=== PATIENT | female | born 1950 | race Caucasian/White ===

== ENCOUNTER 2016-12-27 06:59 | Inpatient (IN) | payer OTHER, MEDICAID ==
[~2016-12-27] VITALS: Ht 154.9 cm; Wt 127.5 kg
[~2016-12-27 06:59] MED LIST: ATENOLOL25 MG PO; COZ25 PO; COZAAR50 MG PO; DEXAMETHAS0.5 MG/5 M; LOM; MOT600 PO; SIMVASTATIN10 M1; SIMVASTATIN20 M1 PO; TRAMADOL HCL50 MG; ZOFRAN4 M2 PO
[2016-12-27 07:45] LABS: BASOPHIL % 0.4 % (0-2); PLATELET COUNT 180 x10^3mcL (130-400)
[2016-12-27 07:52] LABS: RED CELL DISTRIBUTION WIDTH 14.7 % (11.5-14.5)
[2016-12-27 08:02] LABS: CALCIUM 8.8 mg/dL (8.5-10.1); CARBON DIOXIDE 30.1 mmol/L (21-32); CREATININE SERUM 1.1 mg/dL (0.6-1.0)
[2016-12-27 08:06] LABS: ALBUMIN 3.5 g/dL (3.4-5.0); BILIRUBIN TOTAL 0.3 mg/dL (0.20-1.00); TOTAL PROTEIN, SERUM 6.8 g/dL (6.4-8.2)
[2016-12-27 08:11] LABS: T3 TOTAL 1.21 ng/mL
[2016-12-27 08:16] LABS: CHOLESTEROL/HDL RATIO 2.9
[2016-12-27 08:25] LABS: FREE T4 1.02 ng/dL (0.76-1.46); FREE THYROXINE INDEX 3.6 ug/dL (1.4-4.5); T4(THYROXINE) 10.2 ug/dL (4.7-13.3)
[2016-12-27 10:12] LABS: UA SPECIFIC GRAVITY 1.025 (1.005-1.035); microscopic required? YES; urine erythrocyte 1+ (NEGATIVE)
[2016-12-27] MEDS ORDERED: NOR10T (10:56)
[2016-12-27] MEDS ORDERED: FEMARA2.5 MG (10:57)
[2016-12-27] MEDS ORDERED: NIFEDICAL XL30 MG (10:57)
[2016-12-27] MEDS ORDERED: DOK COLACE100 MG PO (10:57)
[2016-12-27] MEDS ORDERED: CHILDREN'S5 MG/5 M1 (10:57)
[2016-12-27 12:07] VITALS: BP 143/68
[2016-12-27 14:02] VITALS: BP 100/50
[2016-12-27 14:52] LABS: AMPHETAMINE QUAL UR NONE DETECTED (NEG <=1000)
[2016-12-27 17:40] VITALS: BP 130/73
[2016-12-27 21:26] VITALS: BP 119/74
[2016-12-28 05:57] VITALS: BP 130/73
[2016-12-28 07:45] LABS: CALCIUM 8.5 mg/dL (8.5-10.1); CARBON DIOXIDE 29.7 mmol/L (21-32); MAGNESIUM 1.8 mg/dL (1.8-2.4); PHOSPHOROUS 3.6 mg/dL (2.5-4.9); POTASSIUM SERUM 4.1 mmol/L (3.5-5.1)
[2016-12-28 08:02] LABS: BASOPHIL % 0.3 % (0-2); PLATELET COUNT 159 x10^3mcL (130-400); RED CELL DISTRIBUTION WIDTH 14.5 % (11.5-14.5)
[2016-12-28 09:00] VITALS: BP 124/62
[2016-12-28 12:06] VITALS: BP 124/62
== END 2016-12-28 12:50 | disposition home or self-care (01) | DRG 947 ==
LOC: ED 06:59 → DU 11:05
PROVIDERS: Specialist; ADMIT Family Medicine
DX: G89.18 Other acute postprocedural pain (principal); E43 Unspecified severe protein-calorie malnutrition; Z68.43 Body mass index [BMI] 50.0-59.9, adult; E11.65 Type 2 diabetes mellitus with hyperglycemia; C50.912 Malignant neoplasm of unspecified site of left female breast; M79.1 Myalgia; I10 Essential (primary) hypertension; E02 Subclinical iodine-deficiency hypothyroidism; E66.01 Morbid (severe) obesity due to excess calories; E78.5 Hyperlipidemia, unspecified; Z79.84 Long term (current) use of oral hypoglycemic drugs; T41.205A Adverse effect of unspecified general anesthetics, initial encounter
CPT/HCPCS: 80307; 83880; 84439; J1885; J2405; J3010; J7030; Q0092

== ENCOUNTER 2017-09-04 14:19 | Emergency (ER) | payer OTHER, MEDICAID ==
[~2017-09-04] VITALS: Ht 154.9 cm; Wt 114.3 kg
[~2017-09-04 14:19] MED LIST changes: +CHILDREN'S5 MG/5 M1; +DOK COLACE100 MG PO; +FEMARA2.5 MG; +NIFEDICAL XL30 MG; +NOR10T
[2017-09-04 14:20] VITALS: Ht 154.9 cm; Wt 114.3 kg
[2017-09-04 15:44] VITALS: BP 150/100
== END 2017-09-04 15:44 | disposition home or self-care (01) ==
LOC: ED 14:19
DX: R05 Cough (principal); I10 Essential (primary) hypertension; Z85.3 Personal history of malignant neoplasm of breast; Z91.048 Other nonmedicinal substance allergy status
CPT/HCPCS: J7512; J7613; J7644; Q0092

== ENCOUNTER 2017-10-03 12:59 | Emergency (ER) | payer OTHER, MEDICAID ==
[~2017-10-03] VITALS: Ht 152.4 cm; Wt 114.8 kg
[2017-10-03 13:10] VITALS: Ht 152.4 cm; Wt 114.8 kg
[2017-10-03 14:08] VITALS: BP 142/75
== END 2017-10-03 14:08 | disposition home or self-care (01) ==
LOC: ED 12:59
DX: J20.9 Acute bronchitis, unspecified (principal); I10 Essential (primary) hypertension
CPT/HCPCS: J7613; J7644; Q0092

== ENCOUNTER 2017-10-05 09:05 | Inpatient (IN) | payer OTHER, MEDICAID ==
[~2017-10-05] VITALS: Ht 152.4 cm; Wt 106.2 kg
[2017-10-05 09:14] VITALS: Ht 152.4 cm; Wt 106.2 kg
[2017-10-05 10:32] LABS: BASOPHIL % 0.2 % (0-2); CK-MB 2.3 ng/mL (0-3.6); FREE T4 1.05 ng/dL (0.76-1.46); PLATELET COUNT 208 x10^3mcL (130-400); T4(THYROXINE) 8.7 ug/dL (4.7-13.3)
[2017-10-05 10:33] LABS: T3 TOTAL 1.55 ng/mL
[2017-10-05 10:35] LABS: RED CELL DISTRIBUTION WIDTH 14.9 % (11.5-14.5)
[2017-10-05 10:38] LABS: CALCIUM 9.3 mg/dL (8.5-10.1); CARBON DIOXIDE 26.7 mmol/L (21-32); CREATININE SERUM 1.1 mg/dL (0.6-1.0); POTASSIUM SERUM 3.7 mmol/L (3.5-5.1)
[2017-10-05 10:48] LABS: BILIRUBIN TOTAL 0.4 mg/dL (0.20-1.00); C REACTIVE PROTEIN 0.7 mg/dL (<=0.9); TOTAL PROTEIN, SERUM 7.6 g/dL (6.4-8.2)
[2017-10-05] MEDS ORDERED: FEMARA2.5 MG PO (10:57)
[2017-10-05] MEDS ORDERED: NOR10 PO (10:57)
[2017-10-05] MEDS ORDERED: CLARITIN10 MG PO (10:57)
[2017-10-05] MEDS ORDERED: AZITHROMYCIN250 M1 PO (10:58)
[2017-10-05] MEDS ORDERED: VENTOLIN H0.09 MG/A1 INH (10:58)
[2017-10-05 11:42] LABS: ERYTHROCYTE SED RATE 34 mm/hr (0-30)
[2017-10-05 12:26] LABS: CHOLESTEROL/HDL RATIO 3.1; PHOSPHOROUS 3.2 mg/dL (2.5-4.9)
[2017-10-05 12:32] VITALS: BP 144/119
[2017-10-05 15:40] VITALS: BP 143/72
[2017-10-05 18:20] VITALS: BP 115/69
[2017-10-05 18:25] VITALS: BP 98/74
[2017-10-05 19:32] LABS: UA SPECIFIC GRAVITY >=1.030 (1.005-1.035); microscopic required? YES; urine erythrocyte 2+ (NEGATIVE)
[2017-10-05 20:11] LABS: AMPHETAMINE QUAL UR NONE DETECTED (NEG <=1000)
[2017-10-05 20:39] VITALS: BP 142/79
[2017-10-06 05:50] VITALS: BP 134/60
[2017-10-06 06:04] LABS: BASOPHIL % 0.1 % (0-2); PLATELET COUNT 199 x10^3mcL (130-400)
[2017-10-06 06:10] LABS: RED CELL DISTRIBUTION WIDTH 15.1 % (11.5-14.5)
[2017-10-06 06:22] LABS: CALCIUM 9.6 mg/dL (8.5-10.1); CARBON DIOXIDE 23.5 mmol/L (21-32); CREATININE SERUM 1.2 mg/dL (0.6-1.0); POTASSIUM SERUM 4.1 mmol/L (3.5-5.1)
[2017-10-06 09:30] VITALS: BP 134/68
[2017-10-06 13:43] VITALS: BP 139/77
[2017-10-06 16:55] VITALS: BP 113/50
[2017-10-06 19:20] VITALS: BP 138/73
[2017-10-07 05:43] VITALS: BP 106/51
[2017-10-07 07:11] LABS: CALCIUM 9.4 mg/dL (8.5-10.1); CARBON DIOXIDE 23.5 mmol/L (21-32); CREATININE SERUM 1.1 mg/dL (0.6-1.0)
[2017-10-07 07:17] LABS: PLATELET COUNT 189 x10^3mcL (130-400)
[2017-10-07 07:52] LABS: BASOPHIL % 0 % (0-2); RED CELL DISTRIBUTION WIDTH 14.9 % (11.5-14.5)
[2017-10-07 10:26] VITALS: BP 148/70
[2017-10-07 12:15] VITALS: BP 144/96
[2017-10-07 17:00] VITALS: BP 141/78
[2017-10-07 19:15] VITALS: BP 136/80
[2017-10-08 05:28] VITALS: BP 119/62
[2017-10-08] MEDS ORDERED: CLEOCIN HCL300 MG PO (05:38)
[2017-10-08] MEDS ORDERED: LEVOFLOXACIN500 M1 PO (05:38)
[2017-10-08] MEDS ORDERED: LAC PO (05:39)
[2017-10-08 06:52] LABS: PLATELET COUNT 175 x10^3mcL (130-400)
[2017-10-08 07:06] LABS: CARBON DIOXIDE 24.1 mmol/L (21-32); CREATININE SERUM 1.1 mg/dL (0.6-1.0)
[2017-10-08 07:25] LABS: BASOPHIL % 0 % (0-2)
[2017-10-08 08:19] VITALS: BP 115/76; BP 117/52
[2017-10-08] MEDS ORDERED: ROBL PO (09:25)
[2017-10-08] MEDS ORDERED: SING10 PO (09:33)
[2017-10-08 09:53] VITALS: BP 115/76
== END 2017-10-08 10:59 | disposition home or self-care (01) | DRG 177 ==
LOC: ED 09:05 → DU 10:48
PROVIDERS: Family Medicine; Family Medicine Sports Medicine; Specialist
DX: J69.0 Pneumonitis due to inhalation of food and vomit (principal); N17.0 Acute kidney failure with tubular necrosis; J45.901 Unspecified asthma with (acute) exacerbation; E66.2 Morbid (severe) obesity with alveolar hypoventilation; Z68.42 Body mass index [BMI] 45.0-49.9, adult; E86.0 Dehydration; C50.912 Malignant neoplasm of unspecified site of left female breast; J30.9 Allergic rhinitis, unspecified; I10 Essential (primary) hypertension; R73.03 Prediabetes; E78.5 Hyperlipidemia, unspecified; Z90.12 Acquired absence of left breast and nipple; Z90.49 Acquired absence of other specified parts of digestive tract; Z91.048 Other nonmedicinal substance allergy status; Z90.710 Acquired absence of both cervix and uterus; Z79.899 Other long term (current) drug therapy; Z83.3 Family history of diabetes mellitus; Z82.49 Family history of ischemic heart disease and other diseases of the circulatory system; Z80.9 Family history of malignant neoplasm, unspecified
CPT/HCPCS: 36600; 82962; 83880; 84439; 87804; 94150; J1200; J1956; J2920; J2930; J3490; J7030; J7613; J7620; J7626; J7644; Q0092

== ENCOUNTER 2018-02-09 16:28 | Inpatient (IN) | payer OTHER, MEDICAID ==
[~2018-02-09] VITALS: Ht 154.9 cm; Wt 119.7 kg
[~2018-02-09 16:28] MED LIST changes: +AZITHROMYCIN250 M1 PO; +CLARITIN10 MG PO; +CLEOCIN HCL300 MG PO; +FEMARA2.5 MG PO; +LAC PO; +LEVOFLOXACIN500 M1 PO; +NOR10 PO; +ROBL PO; +SING10 PO; +VENTOLIN H0.09 MG/A1 INH
[2018-02-09 16:35] VITALS: Ht 154.9 cm; Wt 119.7 kg
[2018-02-09 17:33] LABS: BASOPHIL % 0.3 % (0-2); PLATELET COUNT 197 x10^3mcL (130-400)
[2018-02-09 17:35] LABS: RED CELL DISTRIBUTION WIDTH 14.8 % (11.5-14.5)
[2018-02-09 17:43] LABS: CALCIUM 9.5 mg/dL (8.5-10.1); CARBON DIOXIDE 27.9 mmol/L (21-32); CREATININE SERUM 1.4 mg/dL (0.6-1.0); POTASSIUM SERUM 3.8 mmol/L (3.5-5.1)
[2018-02-09 17:48] LABS: ALBUMIN 3.7 g/dL (3.4-5.0); BILIRUBIN TOTAL 0.4 mg/dL (0.20-1.00); TOTAL PROTEIN, SERUM 7.1 g/dL (6.4-8.2)
[2018-02-09 19:49] LABS: PHOSPHOROUS 3.3 mg/dL (2.5-4.9)
[2018-02-09 19:58] LABS: T3 TOTAL 1.14 ng/mL
[2018-02-09 20:00] LABS: FREE T4 0.93 ng/dL (0.76-1.46); FREE THYROXINE INDEX 2.7 ug/dL (1.4-4.5); T4(THYROXINE) 7.6 ug/dL (4.7-13.3)
[2018-02-09] MEDS ORDERED: NIFEDIPINE ER30 M1 PO (20:14)
[2018-02-09 21:20] VITALS: BP 129/72
[2018-02-10 05:52] VITALS: BP 126/58
[2018-02-10 07:10] LABS: CALCIUM 9.7 mg/dL (8.5-10.1); CARBON DIOXIDE 25.8 mmol/L (21-32); CREATININE SERUM 1.1 mg/dL (0.6-1.0); MAGNESIUM 2.1 mg/dL (1.8-2.4); PHOSPHOROUS 3.7 mg/dL (2.5-4.9); POTASSIUM SERUM 4.6 mmol/L (3.5-5.1)
[2018-02-10 07:19] LABS: BASOPHIL % 0.1 % (0-2); PLATELET COUNT 174 x10^3mcL (130-400); RED CELL DISTRIBUTION WIDTH 14.7 % (11.5-14.5)
[2018-02-10 08:08] LABS: UA SPECIFIC GRAVITY 1.025 (1.005-1.035); microscopic required? YES; urine erythrocyte 1+ (NEGATIVE)
[2018-02-10 08:41] LABS: AMPHETAMINE QUAL UR NONE DETECTED (See below)
[2018-02-10 09:09] VITALS: BP 144/79
[2018-02-10] MEDS ORDERED: MEDDP PO (11:56)
== END 2018-02-10 13:15 | disposition home or self-care (01) | DRG 177 ==
LOC: ED 16:28 → DU 19:17
PROVIDERS: Emergency Medicine; Family Medicine
DX: J69.0 Pneumonitis due to inhalation of food and vomit (principal); N17.0 Acute kidney failure with tubular necrosis; J45.901 Unspecified asthma with (acute) exacerbation; Z68.42 Body mass index [BMI] 45.0-49.9, adult; I10 Essential (primary) hypertension; E78.5 Hyperlipidemia, unspecified; N28.1 Cyst of kidney, acquired; C50.912 Malignant neoplasm of unspecified site of left female breast; E66.01 Morbid (severe) obesity due to excess calories; Z92.3 Personal history of irradiation; Z85.3 Personal history of malignant neoplasm of breast; Z92.21 Personal history of antineoplastic chemotherapy
CPT/HCPCS: 36600; 83880; 84439; 94150; J2920; J3490; J7030; J7512; J7613; J7620; J7644; Q0092; Q9967